=== PATIENT | female | born 1975 | race Caucasian/White ===

== ENCOUNTER 2021-04-25 22:04 | Inpatient (IN) ==
[2021-04-26 00:05] LABS: Basophils % 0.1 %; Eosinophils # 0.3 K/mcL (0.0-0.6); Eosinophils % 2.1 %; Hematocrit 34.4 % (35.3-44.9); Hemoglobin 10.6 g/dL (11.5-15.4); Immature Granulocytes % 0.4 % (0-4); Lymphocytes # 1.1 K/mcL (0.6-4.6); Lymphocytes % 7.7 %; Mean Corpuscular HGB Conc 30.8 g/dL (31.6-35.5); Mean Corpuscular Hemoglobin 30.8 pg (28.0-33.3); Mean Platelet Volume 10.1 fL (9.4-12.4); Monocytes # 0.8 K/mcL (0.0-1.3); Monocytes % 5.7 %; Neutrophils # 11.5 K/mcL (1.6-8.9); Platelet Count 258 K/mcL (140-400); Red Blood Count 3.44 M/mcL (3.82-4.97); Red Cell Distribution Width 14.6 % (11.5-14.5); White Blood Count 13.6 K/mcL (4.3-11.1)
[2021-04-26 00:08] LABS: Prothrombin Time 11.2 Seconds (9.4-12.1)
[2021-04-26 00:11] LABS: Activated Partial Thrombo Time 29.8 Seconds (26.0-36.0)
[2021-04-26 00:18] LABS: Alanine Aminotransferase 37 Units/L (7-52); Albumin 3.5 g/dL (3.5-5.7); Alkaline Phosphatase 80 Units/L (34-104); Aspartate Amino Transferase 34 Units/L (13-39); BUN/Creatinine Ratio 12 (6-26); Bilirubin,Total 0.4 mg/dL (0.3-1.0); Blood Urea Nitrogen 6 mg/dL (6-20); Calcium 8.7 mg/dL (8.6-10.3); Carbon Dioxide 32 mEq/L (23-29); Chloride 98 mEq/L (98-107); Globulin 3.6 g/dL (2.4-3.5); Glucose 69 mg/dL (70-105); Osmolality,Calculated 276 (280-300); Potassium 3.7 mEq/L (3.5-5.1); Sodium 135 mEq/L (136-145); Total Protein 7.1 g/dL (6.4-8.9); eGFR For African Americans > 60 (> 60); eGFR For Non-African Americans > 60 (> 60)
[2021-04-26] MEDS ORDERED: Bupivacaine-MPF 0.25% 10 ML VIAL INFILT ONE (00:30)
[2021-04-26] MEDS ORDERED: Ketorolac 30 MG/ML VIAL IVP ONE (01:09)
[2021-04-26] MEDS ORDERED: Naloxone 0.4 MG/ML INJ IVP PRN (03:39)
[2021-04-26] MEDS ORDERED: Melatonin 3 MG TABLET PO PRN (03:39)
[2021-04-26] MEDS ORDERED: Ondansetron 4 MG/2 ML VIAL IVP PRN (03:39)
[2021-04-26] MEDS ORDERED: Dextrose 4 GM Chewable Tablets PO PRN ×2 (06:07)
[2021-04-26] MEDS ORDERED: D5% in Water 1,000 ML IVC PRN (06:07)
[2021-04-26] MEDS ORDERED: Nicotine 21 MG PATCH.TD24 TD SCH (06:07)
[2021-04-26] MEDS ORDERED: *HR* Dextrose 50 % in Water (Syg) 50 ML SYRINGE IVP PRN (06:07)
[2021-04-26 07:12] LABS: BUN/Creatinine Ratio 13 (6-26); Blood Urea Nitrogen 7 mg/dL (6-20); Calcium 8.4 mg/dL (8.6-10.3); Carbon Dioxide 29 mEq/L (23-29); Chloride 101 mEq/L (98-107); Glucose 93 mg/dL (70-105); Magnesium 1.9 mg/dL (1.6-2.6); Osmolality,Calculated 278 (280-300); Phosphorous 2.5 mg/dL (2.7-4.5); Potassium 3.8 mEq/L (3.5-5.1); Sodium 135 mEq/L (136-145); eGFR For African Americans > 60 (> 60); eGFR For Non-African Americans > 60 (> 60)
[2021-04-26] MEDS ORDERED: Piperacillin/Tazobactam 3.375 GM in 0.9 % Sodium Chloride Mini Bag 100 ML IVPB SCH (08:00)
[2021-04-26] MEDS ORDERED: Isovue-370 500 ML BOTTLE IVP ONE ×2 (08:24→08:25)
[2021-04-26] MEDS ORDERED: 0.9 % Sodium Chloride 1,000 ML IVC SCH (08:30)
[2021-04-26 12:12] LABS: Prothrombin Time 11.3 Seconds (9.4-12.1)
[2021-04-26 12:15] LABS: Activated Partial Thrombo Time 28.6 Seconds (26.0-36.0)
[2021-04-26 12:18] LABS: Basophils % 0.1 %; Eosinophils # 0.3 K/mcL (0.0-0.6); Eosinophils % 2.3 %; Hematocrit 33.4 % (35.3-44.9); Hemoglobin 10.4 g/dL (11.5-15.4); Immature Granulocytes % 0.3 % (0-4); Lymphocytes # 0.8 K/mcL (0.6-4.6); Lymphocytes % 6.7 %; Mean Corpuscular HGB Conc 31.1 g/dL (31.6-35.5); Mean Corpuscular Hemoglobin 31.1 pg (28.0-33.3); Mean Platelet Volume 10.4 fL (9.4-12.4); Monocytes # 0.3 K/mcL (0.0-1.3); Monocytes % 2.9 %; Neutrophils # 10.1 K/mcL (1.6-8.9); Platelet Count 245 K/mcL (140-400); Red Blood Count 3.34 M/mcL (3.82-4.97); Red Cell Distribution Width 14.9 % (11.5-14.5); Segmented Neutrophils % 87.7 %; White Blood Count 11.5 K/mcL (4.3-11.1)
[2021-04-26] MEDS: Vancomycin 1,250 MG/262.5 ML IV.SOLN IVPB SCH (13:37)
[2021-04-26] MEDS: Ketorolac 30 MG/ML VIAL IVP PRN (13:38)
[2021-04-26] MEDS: Piperacillin/Tazobactam 3.375 GM in 0.9 % Sodium Chloride Mini Bag 100 ML IVPB SCH (18:21)
[2021-04-26] MEDS: *HR* OxyCODONE Immed Rel 5 MG TABLET PO PRN (19:05)
[2021-04-26] MEDS ORDERED: Melatonin 3 MG TABLET PO SCH (21:00)
[2021-04-26] MEDS ORDERED: Gabapentin 300 MG CAPSULE PO SCH (21:00)
[2021-04-26] MEDS ORDERED: FLUoxetine 20 MG CAPSULE PO SCH (22:00)
[2021-04-27] MEDS: Vancomycin 1,250 MG/262.5 ML IV.SOLN IVPB SCH ×2 (00:24→20:31)
[2021-04-27] MEDS: *HR* OxyCODONE Immed Rel 5 MG TABLET PO PRN ×3 (01:34→22:44)
[2021-04-27] MEDS: Piperacillin/Tazobactam 3.375 GM in 0.9 % Sodium Chloride Mini Bag 100 ML IVPB SCH ×3 (01:34→16:47)
[2021-04-27] MEDS ORDERED: Morphine Sulfate 2 MG/ML SYRINGE IVP ONE (05:24)
[2021-04-27] MEDS ORDERED: Ringers Solution, Lactated 1,000 ML IVC ONE (05:54)
[2021-04-27] MEDS ORDERED: *HR* Enoxaparin 40 MG/0.4 ML SYRINGE SQ SCH (06:00)
[2021-04-27] MEDS: Ketorolac 30 MG/ML VIAL IVP PRN ×3 (06:11→20:30)
[2021-04-27 07:00] LABS: Basophils % 0.2 %; Eosinophils # 0.4 K/mcL (0.0-0.6); Eosinophils % 3.3 %; Hemoglobin 9.3 g/dL (11.5-15.4); Immature Granulocytes % 0.3 % (0-4); Mean Corpuscular Hemoglobin 30.7 pg (28.0-33.3); Mean Platelet Volume 10.3 fL (9.4-12.4); Monocytes # 0.7 K/mcL (0.0-1.3); Monocytes % 5.8 %; Neutrophils # 9.4 K/mcL (1.6-8.9); Platelet Count 220 K/mcL (140-400); Red Blood Count 3.03 M/mcL (3.82-4.97); Segmented Neutrophils % 81.4 %; White Blood Count 11.6 K/mcL (4.3-11.1)
[2021-04-27 07:16] LABS: BUN/Creatinine Ratio 20 (6-26); Blood Urea Nitrogen 14 mg/dL (6-20); Calcium 7.9 mg/dL (8.6-10.3); Carbon Dioxide 26 mEq/L (23-29); Chloride 104 mEq/L (98-107); Glucose 97 mg/dL (70-105); Magnesium 1.7 mg/dL (1.6-2.6); Osmolality,Calculated 280 (280-300); Phosphorous 3.2 mg/dL (2.7-4.5); Potassium 4.4 mEq/L (3.5-5.1); Sodium 135 mEq/L (136-145); eGFR For African Americans > 60 (> 60); eGFR For Non-African Americans > 60 (> 60)
[2021-04-27] MEDS ORDERED: *HR* Propofol 200 MG/20 ML VIAL IVP ONE ×2 (08:45→12:19)
[2021-04-27] MEDS ORDERED: *HR* FentaNYL (PF) 100 MCG/2 ML VIAL ONE ×2 (08:45→12:19)
[2021-04-27] MEDS ORDERED: Ondansetron 4 MG/2 ML VIAL ONE ×2 (08:45→12:19)
[2021-04-27] MEDS ORDERED: Lidocaine -MPF 2% 5 ML VIAL ONE ×2 (08:45→12:19)
[2021-04-27] MEDS ORDERED: Carbidopa/Levodopa 25/100 TABLET PO SCH (09:00)
[2021-04-27] MEDS ORDERED: Lidocaine/EPI 1:100k 1% 30 ML VIAL ONE (12:18)
[2021-04-27] MEDS ORDERED: *HR* Midazolam HCl 2 MG/2 ML VIAL ONE (12:19)
[2021-04-27] MEDS ORDERED: *HR* Succinylcholine 200 MG/10 ML VIAL IVP ONE (12:19)
[2021-04-27] MEDS ORDERED: *HR* Rocuronium Bromide 50 MG/5 ML VIAL ONE (12:19)
[2021-04-27] MEDS ORDERED: Lidocaine -MPF 4% 5 ML AMPUL ONE (12:19)
[2021-04-27] MEDS ORDERED: Ketamine HCL *QUVA* 50mg (1mL) SYRINGE ONE (12:43)
[2021-04-27] MEDS ORDERED: Acetaminophen IV 1,000 MG/100 ML BAG IVPB ONE (14:15)
[2021-04-27] MEDS ORDERED: Naloxone 0.4 MG/ML INJ IVP PRN (14:38)
[2021-04-27] MEDS ORDERED: Dextrose 4 GM Chewable Tablets PO PRN ×2 (14:38)
[2021-04-27] MEDS ORDERED: Ondansetron 4 MG/2 ML VIAL IVP PRN (14:38)
[2021-04-27] MEDS ORDERED: D5% in Water 1,000 ML IVC PRN (14:38)
[2021-04-27] MEDS ORDERED: Melatonin 3 MG TABLET PO PRN (14:38)
[2021-04-27] MEDS ORDERED: *HR* Dextrose 50 % in Water (Syg) 50 ML SYRINGE IVP PRN (14:38)
[2021-04-27] MEDS: Melatonin 3 MG TABLET PO SCH (20:31)
[2021-04-27] MEDS: FLUoxetine 20 MG CAPSULE PO SCH (20:32)
[2021-04-27] MEDS: Gabapentin 300 MG CAPSULE PO SCH (20:32)
[2021-04-27] MEDS: Furosemide 20 MG TABLET PO SCH (22:44)
[2021-04-28] MEDS ORDERED: Vancomycin 1,250 MG/262.5 ML IV.SOLN IVPB SCH (01:00)
[2021-04-28] MEDS: Piperacillin/Tazobactam 3.375 GM in 0.9 % Sodium Chloride Mini Bag 100 ML IVPB SCH ×3 (04:08→17:41)
[2021-04-28] MEDS: Vancomycin 1,250 MG/262.5 ML IV.SOLN IVPB SCH ×2 (04:19→17:40)
[2021-04-28] MEDS: Ketorolac 30 MG/ML VIAL IVP PRN (04:20)
[2021-04-28 04:50] LABS: Basophils % 0.1 %; Eosinophils # 0.1 K/mcL (0.0-0.6); Eosinophils % 0.5 %; Hemoglobin 9.4 g/dL (11.5-15.4); Immature Granulocytes % 0.3 % (0-4); Lymphocytes # 0.9 K/mcL (0.6-4.6); Lymphocytes % 7.7 %; Mean Corpuscular HGB Conc 31.3 g/dL (31.6-35.5); Mean Corpuscular Hemoglobin 31.2 pg (28.0-33.3); Mean Corpuscular Volume 99.7 fL (83.0-100.0); Mean Platelet Volume 10.3 fL (9.4-12.4); Monocytes # 0.3 K/mcL (0.0-1.3); Monocytes % 2.6 %; Neutrophils # 10.9 K/mcL (1.6-8.9); Platelet Count 274 K/mcL (140-400); Red Blood Count 3.01 M/mcL (3.82-4.97); Red Cell Distribution Width 14.6 % (11.5-14.5); Segmented Neutrophils % 88.8 %; White Blood Count 12.3 K/mcL (4.3-11.1)
[2021-04-28 05:06] LABS: BUN/Creatinine Ratio 19 (6-26); Blood Urea Nitrogen 16 mg/dL (6-20); Calcium 8.4 mg/dL (8.6-10.3); Carbon Dioxide 29 mEq/L (23-29); Chloride 100 mEq/L (98-107); Glucose 169 mg/dL (70-105); Magnesium 1.6 mg/dL (1.6-2.6); Osmolality,Calculated 287 (280-300); Phosphorous 2.9 mg/dL (2.7-4.5); Potassium 3.8 mEq/L (3.5-5.1); Sodium 136 mEq/L (136-145); eGFR For African Americans > 60 (> 60); eGFR For Non-African Americans > 60 (> 60)
[2021-04-28] MEDS: *HR* OxyCODONE Immed Rel 5 MG TABLET PO PRN ×2 (06:17→14:36)
[2021-04-28] MEDS: *HR* Enoxaparin 40 MG/0.4 ML SYRINGE SQ SCH (06:18)
[2021-04-28] MEDS: Furosemide 20 MG TABLET PO SCH ×2 (08:29→17:42)
[2021-04-28] MEDS: Gabapentin 300 MG CAPSULE PO SCH ×2 (08:30→20:37)
[2021-04-28] MEDS: Carbidopa/Levodopa 25/100 TABLET PO SCH (08:30)
[2021-04-28] MEDS ORDERED: Nicotine 21 MG PATCH.TD24 TD SCH (09:00)
[2021-04-28] MEDS ORDERED: FLUoxetine 20 MG CAPSULE PO SCH ×2 (09:00)
[2021-04-28] MEDS: Nicotine 21 MG PATCH.TD24 TD SCH (18:06)
[2021-04-28] MEDS: Melatonin 3 MG TABLET PO SCH (20:37)
[2021-04-28] MEDS: FLUoxetine 20 MG CAPSULE PO SCH (20:38)
[2021-04-29] MEDS: Piperacillin/Tazobactam 3.375 GM in 0.9 % Sodium Chloride Mini Bag 100 ML IVPB SCH ×2 (02:20→08:36)
[2021-04-29] MEDS: Vancomycin 1,250 MG/262.5 ML IV.SOLN IVPB SCH ×2 (05:57→18:44)
[2021-04-29] MEDS: *HR* Enoxaparin 40 MG/0.4 ML SYRINGE SQ SCH (05:57)
[2021-04-29] MEDS: *HR* OxyCODONE/APAP 10/325 TABLET PO PRN ×2 (05:58→19:00)
[2021-04-29 05:59] LABS: Basophils % 0.4 %; Eosinophils # 0.4 K/mcL (0.0-0.6); Eosinophils % 5.3 %; Hematocrit 28.1 % (35.3-44.9); Hemoglobin 8.9 g/dL (11.5-15.4); Immature Granulocytes % 0.3 % (0-4); Lymphocytes # 1.6 K/mcL (0.6-4.6); Lymphocytes % 23.2 %; Mean Corpuscular HGB Conc 31.7 g/dL (31.6-35.5); Mean Corpuscular Hemoglobin 31.7 pg (28.0-33.3); Mean Platelet Volume 10.2 fL (9.4-12.4); Monocytes # 0.4 K/mcL (0.0-1.3); Monocytes % 5.8 %; Neutrophils # 4.6 K/mcL (1.6-8.9); Platelet Count 248 K/mcL (140-400); Red Blood Count 2.81 M/mcL (3.82-4.97); Red Cell Distribution Width 14.6 % (11.5-14.5)
[2021-04-29 06:35] LABS: Folate 12.8 ng/mL (3.0-16.0)
[2021-04-29 06:39] LABS: % Iron Saturation 6 % (15-50); BUN/Creatinine Ratio 22 (6-26); Blood Urea Nitrogen 17 mg/dL (6-20); Calcium 7.9 mg/dL (8.6-10.3); Carbon Dioxide 30 mEq/L (23-29); Chloride 103 mEq/L (98-107); Glucose 82 mg/dL (70-105); Iron 19 mcg/dL (50-170); Magnesium 1.6 mg/dL (1.6-2.6); Osmolality,Calculated 287 (280-300); Sodium 138 mEq/L (136-145); Transferrin 217 mg/dL (203-362); eGFR For African Americans > 60 (> 60); eGFR For Non-African Americans > 60 (> 60)
[2021-04-29] MEDS ORDERED: Iron Sucrose Complex 200 MG in 0.9 % Sodium Chloride 100 ML IVPB ONE (07:34)
[2021-04-29] MEDS ORDERED: Cyanocobalamin (B-12) 1,000 MCG/ML VIAL SQ ONE (07:34)
[2021-04-29 07:37] LABS: Ferritin 36 ng/mL (10-120)
[2021-04-29] MEDS: Gabapentin 300 MG CAPSULE PO SCH ×2 (08:35→21:54)
[2021-04-29] MEDS: Carbidopa/Levodopa 25/100 TABLET PO SCH (08:35)
[2021-04-29] MEDS: Nicotine 21 MG PATCH.TD24 TD SCH (18:48)
[2021-04-29] MEDS: Melatonin 3 MG TABLET PO SCH (21:53)
[2021-04-29] MEDS: FLUoxetine 20 MG CAPSULE PO SCH (21:54)
[2021-04-30] MEDS: Vancomycin 1,250 MG/262.5 ML IV.SOLN IVPB SCH ×2 (05:57→20:23)
[2021-04-30] MEDS: *HR* Enoxaparin 40 MG/0.4 ML SYRINGE SQ SCH (05:57)
[2021-04-30] MEDS: *HR* OxyCODONE/APAP 10/325 TABLET PO PRN ×3 (06:04→20:22)
[2021-04-30 07:51] LABS: BUN/Creatinine Ratio 16 (6-26); Blood Urea Nitrogen 12 mg/dL (6-20); Calcium 8.8 mg/dL (8.6-10.3); Carbon Dioxide 36 mEq/L (23-29); Chloride 102 mEq/L (98-107); Glucose 94 mg/dL (70-105); Osmolality,Calculated 294 (280-300); Potassium 4.1 mEq/L (3.5-5.1); Sodium 142 mEq/L (136-145); eGFR For African Americans > 60 (> 60); eGFR For Non-African Americans > 60 (> 60)
[2021-04-30 09:07] LABS: Basophils % 0.5 %; Eosinophils # 0.3 K/mcL (0.0-0.6); Eosinophils % 5.3 %; Hematocrit 33.3 % (35.3-44.9); Hemoglobin 9.9 g/dL (11.5-15.4); Immature Granulocytes % 0.5 % (0-4); Lymphocytes # 1.5 K/mcL (0.6-4.6); Lymphocytes % 23.7 %; Mean Corpuscular HGB Conc 29.7 g/dL (31.6-35.5); Mean Corpuscular Hemoglobin 30.4 pg (28.0-33.3); Mean Corpuscular Volume 102.1 fL (83.0-100.0); Mean Platelet Volume 10.1 fL (9.4-12.4); Monocytes # 0.4 K/mcL (0.0-1.3); Monocytes % 6.3 %; Neutrophils # 4.1 K/mcL (1.6-8.9); Platelet Count 330 K/mcL (140-400); Red Blood Count 3.26 M/mcL (3.82-4.97); Red Cell Distribution Width 14.6 % (11.5-14.5); Segmented Neutrophils % 63.7 %; White Blood Count 6.4 K/mcL (4.3-11.1)
[2021-04-30 09:21] LABS: Thyroid Stimulating Hormone 100.105 mcIU/mL (0.340-5.600)
[2021-04-30] MEDS: Carbidopa/Levodopa 25/100 TABLET PO SCH (10:35)
[2021-04-30] MEDS: Gabapentin 300 MG CAPSULE PO SCH ×2 (10:36→20:22)
[2021-04-30] MEDS: Nicotine 21 MG PATCH.TD24 TD SCH (18:38)
[2021-04-30] MEDS: FLUoxetine 20 MG CAPSULE PO SCH (20:22)
[2021-04-30] MEDS: Melatonin 3 MG TABLET PO SCH (20:22)
[2021-05-01] MEDS: *HR* OxyCODONE/APAP 10/325 TABLET PO PRN ×5 (03:04→22:43)
[2021-05-01 03:34] LABS: Basophils % 0.6 %; Eosinophils # 0.4 K/mcL (0.0-0.6); Eosinophils % 5.8 %; Hematocrit 32.5 % (35.3-44.9); Hemoglobin 10.1 g/dL (11.5-15.4); Immature Granulocytes % 0.8 % (0-4); Lymphocytes # 1.6 K/mcL (0.6-4.6); Lymphocytes % 24.8 %; Mean Corpuscular HGB Conc 31.1 g/dL (31.6-35.5); Mean Corpuscular Hemoglobin 30.8 pg (28.0-33.3); Mean Corpuscular Volume 99.1 fL (83.0-100.0); Mean Platelet Volume 9.5 fL (9.4-12.4); Monocytes # 0.4 K/mcL (0.0-1.3); Monocytes % 5.5 %; Neutrophils # 4.1 K/mcL (1.6-8.9); Platelet Count 312 K/mcL (140-400); Red Blood Count 3.28 M/mcL (3.82-4.97); Red Cell Distribution Width 14.4 % (11.5-14.5); Segmented Neutrophils % 62.5 %; White Blood Count 6.5 K/mcL (4.3-11.1)
[2021-05-01 03:46] LABS: BUN/Creatinine Ratio 16 (6-26); Blood Urea Nitrogen 12 mg/dL (6-20); Calcium 8.8 mg/dL (8.6-10.3); Carbon Dioxide 33 mEq/L (23-29); Chloride 101 mEq/L (98-107); Glucose 95 mg/dL (70-105); Magnesium 1.8 mg/dL (1.6-2.6); Osmolality,Calculated 286 (280-300); Potassium 4.2 mEq/L (3.5-5.1); Sodium 138 mEq/L (136-145); eGFR For African Americans > 60 (> 60); eGFR For Non-African Americans > 60 (> 60)
[2021-05-01] MEDS: *HR* Enoxaparin 40 MG/0.4 ML SYRINGE SQ SCH (06:13)
[2021-05-01] MEDS: Vancomycin 1,250 MG/262.5 ML IV.SOLN IVPB SCH ×2 (06:14→17:12)
[2021-05-01 07:10] LABS: Triiodothyronine (T3) Free 1.82 pg/mL (2.50-3.90)
[2021-05-01 07:36] LABS: Thyroid Stimulating Hormone 68.885 mcIU/mL (0.340-5.600)
[2021-05-01] MEDS: Gabapentin 300 MG CAPSULE PO SCH ×2 (08:22→21:19)
[2021-05-01] MEDS: Furosemide 40 MG/4 ML VIAL IVP SCH (08:22)
[2021-05-01] MEDS: Carbidopa/Levodopa 25/100 TABLET PO SCH (08:22)
[2021-05-01] MEDS: Nicotine 21 MG PATCH.TD24 TD SCH (17:12)
[2021-05-01] MEDS: FLUoxetine 20 MG CAPSULE PO SCH (21:19)
[2021-05-01] MEDS: Melatonin 3 MG TABLET PO SCH (21:19)
[2021-05-02 04:28] LABS: Basophils % 0.4 %; Eosinophils # 0.4 K/mcL (0.0-0.6); Eosinophils % 5.9 %; Hematocrit 31.4 % (35.3-44.9); Lymphocytes # 1.5 K/mcL (0.6-4.6); Lymphocytes % 22.6 %; Mean Corpuscular HGB Conc 31.8 g/dL (31.6-35.5); Mean Corpuscular Hemoglobin 31.3 pg (28.0-33.3); Mean Corpuscular Volume 98.1 fL (83.0-100.0); Mean Platelet Volume 9.6 fL (9.4-12.4); Monocytes # 0.4 K/mcL (0.0-1.3); Monocytes % 5.3 %; Neutrophils # 4.4 K/mcL (1.6-8.9); Platelet Count 327 K/mcL (140-400); Red Cell Distribution Width 14.1 % (11.5-14.5); Segmented Neutrophils % 64.8 %; White Blood Count 6.8 K/mcL (4.3-11.1)
[2021-05-02 05:18] LABS: BUN/Creatinine Ratio 17 (6-26); Blood Urea Nitrogen 13 mg/dL (6-20); Calcium 8.9 mg/dL (8.6-10.3); Carbon Dioxide 32 mEq/L (23-29); Chloride 100 mEq/L (98-107); Glucose 85 mg/dL (70-105); Magnesium 1.9 mg/dL (1.6-2.6); Osmolality,Calculated 281 (280-300); Potassium 4.2 mEq/L (3.5-5.1); Sodium 136 mEq/L (136-145); eGFR For African Americans > 60 (> 60); eGFR For Non-African Americans > 60 (> 60)
[2021-05-02] MEDS: *HR* OxyCODONE/APAP 10/325 TABLET PO PRN ×4 (05:22→20:40)
[2021-05-02] MEDS: Vancomycin 1,250 MG/262.5 ML IV.SOLN IVPB SCH ×2 (05:22→18:20)
[2021-05-02] MEDS: *HR* Enoxaparin 40 MG/0.4 ML SYRINGE SQ SCH (05:23)
[2021-05-02] MEDS: Carbidopa/Levodopa 25/100 TABLET PO SCH (08:53)
[2021-05-02] MEDS: Gabapentin 300 MG CAPSULE PO SCH ×2 (08:53→20:41)
[2021-05-02] MEDS: Furosemide 40 MG/4 ML VIAL IVP SCH (08:53)
[2021-05-02] MEDS ORDERED: Isovue-370 500 ML BOTTLE IVP ONE (13:24)
[2021-05-02] MEDS: Nicotine 21 MG PATCH.TD24 TD SCH (18:20)
[2021-05-02] MEDS: Melatonin 3 MG TABLET PO SCH (20:40)
[2021-05-02] MEDS: FLUoxetine 20 MG CAPSULE PO SCH (20:41)
[2021-05-03] MEDS: *HR* OxyCODONE/APAP 10/325 TABLET PO PRN ×5 (02:21→23:27)
[2021-05-03 04:16] LABS: Basophils % 0.6 %; Eosinophils # 0.4 K/mcL (0.0-0.6); Eosinophils % 5.6 %; Hematocrit 33.6 % (35.3-44.9); Hemoglobin 10.7 g/dL (11.5-15.4); Immature Granulocytes % 1.3 % (0-4); Lymphocytes # 1.6 K/mcL (0.6-4.6); Lymphocytes % 22.9 %; Mean Corpuscular HGB Conc 31.8 g/dL (31.6-35.5); Mean Corpuscular Volume 97.4 fL (83.0-100.0); Mean Platelet Volume 9.5 fL (9.4-12.4); Monocytes # 0.5 K/mcL (0.0-1.3); Monocytes % 6.9 %; Neutrophils # 4.3 K/mcL (1.6-8.9); Platelet Count 366 K/mcL (140-400); Red Blood Count 3.45 M/mcL (3.82-4.97); Red Cell Distribution Width 14.2 % (11.5-14.5); Segmented Neutrophils % 62.7 %; White Blood Count 6.8 K/mcL (4.3-11.1)
[2021-05-03 04:45] LABS: BUN/Creatinine Ratio 16 (6-26); Blood Urea Nitrogen 14 mg/dL (6-20); Calcium 8.8 mg/dL (8.6-10.3); Carbon Dioxide 32 mEq/L (23-29); Chloride 99 mEq/L (98-107); Glucose 95 mg/dL (70-105); Osmolality,Calculated 282 (280-300); Potassium 3.9 mEq/L (3.5-5.1); Sodium 136 mEq/L (136-145); eGFR For African Americans > 60 (> 60); eGFR For Non-African Americans > 60 (> 60)
[2021-05-03] MEDS: Vancomycin 1,250 MG/262.5 ML IV.SOLN IVPB SCH ×2 (05:21→16:47)
[2021-05-03] MEDS: *HR* Enoxaparin 40 MG/0.4 ML SYRINGE SQ SCH (05:22)
[2021-05-03] MEDS: Carbidopa/Levodopa 25/100 TABLET PO SCH (08:41)
[2021-05-03] MEDS: Gabapentin 300 MG CAPSULE PO SCH ×2 (08:41→20:48)
[2021-05-03] MEDS: polyethylene glycoL 3350 17 GM POWD.PACK PO SCH (09:42)
[2021-05-03] MEDS: Ringers Solution, Lactated 1,000 ML IVC SCH (16:47)
[2021-05-03] MEDS ORDERED: Lidocaine -MPF 2% 5 ML VIAL ONE (17:00)
[2021-05-03] MEDS ORDERED: *HR* FentaNYL (PF) 100 MCG/2 ML VIAL ONE (17:00)
[2021-05-03] MEDS ORDERED: *HR* Midazolam HCl 2 MG/2 ML VIAL ONE (17:00)
[2021-05-03] MEDS ORDERED: Lidocaine/EPI 1:100k 1% 30 ML VIAL ONE (17:01)
[2021-05-03] MEDS ORDERED: *HR* Propofol 200 MG/20 ML VIAL IVP ONE ×3 (17:01→17:39)
[2021-05-03] MEDS ORDERED: Bupivacaine/EPI 1:200k 0.25% 50 ML VIAL ONE (17:18)
[2021-05-03] MEDS: Nicotine 21 MG PATCH.TD24 TD SCH (17:26)
[2021-05-03] MEDS: Melatonin 3 MG TABLET PO SCH (20:48)
[2021-05-03] MEDS: FLUoxetine 20 MG CAPSULE PO SCH (20:48)
[2021-05-04] MEDS: Vancomycin 1,250 MG/262.5 ML IV.SOLN IVPB SCH (05:12)
[2021-05-04] MEDS: *HR* OxyCODONE/APAP 10/325 TABLET PO PRN ×4 (05:19→20:21)
[2021-05-04] MEDS: *HR* Enoxaparin 40 MG/0.4 ML SYRINGE SQ SCH (05:19)
[2021-05-04 06:03] LABS: Basophils % 0.5 %; Eosinophils # 0.4 K/mcL (0.0-0.6); Eosinophils % 4.7 %; Hematocrit 32.3 % (35.3-44.9); Hemoglobin 10.2 g/dL (11.5-15.4); Immature Granulocytes % 1.1 % (0-4); Lymphocytes # 1.4 K/mcL (0.6-4.6); Lymphocytes % 17.3 %; Mean Corpuscular HGB Conc 31.6 g/dL (31.6-35.5); Mean Corpuscular Hemoglobin 30.9 pg (28.0-33.3); Mean Corpuscular Volume 97.9 fL (83.0-100.0); Mean Platelet Volume 9.6 fL (9.4-12.4); Monocytes # 0.5 K/mcL (0.0-1.3); Monocytes % 5.9 %; Neutrophils # 5.8 K/mcL (1.6-8.9); Platelet Count 374 K/mcL (140-400); Red Cell Distribution Width 14.3 % (11.5-14.5); Segmented Neutrophils % 70.5 %; White Blood Count 8.3 K/mcL (4.3-11.1)
[2021-05-04 06:17] LABS: BUN/Creatinine Ratio 17 (6-26); Blood Urea Nitrogen 16 mg/dL (6-20); Calcium 8.8 mg/dL (8.6-10.3); Carbon Dioxide 31 mEq/L (23-29); Chloride 101 mEq/L (98-107); Glucose 82 mg/dL (70-105); Magnesium 1.9 mg/dL (1.6-2.6); Osmolality,Calculated 282 (280-300); Potassium 4.2 mEq/L (3.5-5.1); Sodium 136 mEq/L (136-145); eGFR For African Americans > 60 (> 60); eGFR For Non-African Americans > 60 (> 60)
[2021-05-04] MEDS: polyethylene glycoL 3350 17 GM POWD.PACK PO SCH (07:51)
[2021-05-04] MEDS: Carbidopa/Levodopa 25/100 TABLET PO SCH (07:51)
[2021-05-04] MEDS: Gabapentin 300 MG CAPSULE PO SCH ×2 (07:51→20:21)
[2021-05-04] MEDS ORDERED: polyethylene glycoL 3350 17 GM POWD.PACK PO SCH (09:28)
[2021-05-04] MEDS: Nicotine 21 MG PATCH.TD24 TD SCH (17:52)
[2021-05-04] MEDS: Melatonin 3 MG TABLET PO SCH (20:21)
[2021-05-04] MEDS: FLUoxetine 20 MG CAPSULE PO SCH (20:21)
[2021-05-05] MEDS: *HR* OxyCODONE/APAP 10/325 TABLET PO PRN ×5 (00:34→20:48)
[2021-05-05] MEDS: *HR* Enoxaparin 40 MG/0.4 ML SYRINGE SQ SCH (05:23)
[2021-05-05 05:53] LABS: Basophils % 0.7 %; Eosinophils # 0.4 K/mcL (0.0-0.6); Eosinophils % 6.6 %; Hematocrit 35.2 % (35.3-44.9); Hemoglobin 11.1 g/dL (11.5-15.4); Lymphocytes # 1.5 K/mcL (0.6-4.6); Lymphocytes % 25.8 %; Mean Corpuscular HGB Conc 31.5 g/dL (31.6-35.5); Mean Corpuscular Hemoglobin 30.2 pg (28.0-33.3); Mean Corpuscular Volume 95.7 fL (83.0-100.0); Mean Platelet Volume 9.5 fL (9.4-12.4); Monocytes # 0.4 K/mcL (0.0-1.3); Monocytes % 7.2 %; Neutrophils # 3.4 K/mcL (1.6-8.9); Platelet Count 362 K/mcL (140-400); Red Blood Count 3.68 M/mcL (3.82-4.97); Red Cell Distribution Width 14.1 % (11.5-14.5); Segmented Neutrophils % 58.7 %; White Blood Count 5.7 K/mcL (4.3-11.1)
[2021-05-05] MEDS: Ringers Solution, Lactated 1,000 ML IVC SCH ×2 (08:07→10:34)
[2021-05-05] MEDS: Gabapentin 300 MG CAPSULE PO SCH ×3 (10:25→20:48)
[2021-05-05] MEDS: Carbidopa/Levodopa 25/100 TABLET PO SCH (10:25)
[2021-05-05] MEDS: polyethylene glycoL 3350 17 GM POWD.PACK PO SCH (10:26)
[2021-05-05] MEDS: Nicotine 21 MG PATCH.TD24 TD SCH (17:49)
[2021-05-05 20:24] LABS: BUN/Creatinine Ratio 17 (6-26); Blood Urea Nitrogen 14 mg/dL (6-20); Carbon Dioxide 30 mEq/L (23-29); Chloride 100 mEq/L (98-107); Glucose 77 mg/dL (70-105); Osmolality,Calculated 283 (280-300); Potassium 4.2 mEq/L (3.5-5.1); Sodium 137 mEq/L (136-145); eGFR For African Americans > 60 (> 60); eGFR For Non-African Americans > 60 (> 60)
[2021-05-05] MEDS: Melatonin 3 MG TABLET PO SCH (20:48)
[2021-05-05] MEDS: FLUoxetine 20 MG CAPSULE PO SCH (20:48)
[2021-05-06] MEDS: *HR* OxyCODONE/APAP 10/325 TABLET PO PRN ×5 (01:26→23:31)
[2021-05-06 05:06] LABS: Basophils % 0.6 %; Eosinophils # 0.4 K/mcL (0.0-0.6); Hemoglobin 10.5 g/dL (11.5-15.4); Immature Granulocytes % 0.9 % (0-4); Lymphocytes # 1.4 K/mcL (0.6-4.6); Lymphocytes % 20.9 %; Mean Corpuscular HGB Conc 30.9 g/dL (31.6-35.5); Mean Corpuscular Hemoglobin 30.1 pg (28.0-33.3); Mean Corpuscular Volume 97.4 fL (83.0-100.0); Mean Platelet Volume 9.6 fL (9.4-12.4); Monocytes # 0.5 K/mcL (0.0-1.3); Monocytes % 7.6 %; Neutrophils # 4.4 K/mcL (1.6-8.9); Platelet Count 366 K/mcL (140-400); Red Blood Count 3.49 M/mcL (3.82-4.97); Red Cell Distribution Width 14.4 % (11.5-14.5); White Blood Count 6.8 K/mcL (4.3-11.1)
[2021-05-06 05:51] LABS: BUN/Creatinine Ratio 21 (6-26); Blood Urea Nitrogen 17 mg/dL (6-20); Calcium 8.8 mg/dL (8.6-10.3); Carbon Dioxide 28 mEq/L (23-29); Chloride 101 mEq/L (98-107); Glucose 93 mg/dL (70-105); Magnesium 1.9 mg/dL (1.6-2.6); Osmolality,Calculated 279 (280-300); Potassium 3.7 mEq/L (3.5-5.1); Sodium 134 mEq/L (136-145); Vancomycin,Trough 13 mcg/mL (5-10); eGFR For African Americans > 60 (> 60); eGFR For Non-African Americans > 60 (> 60)
[2021-05-06] MEDS: *HR* Enoxaparin 40 MG/0.4 ML SYRINGE SQ SCH (06:04)
[2021-05-06] MEDS: polyethylene glycoL 3350 17 GM POWD.PACK PO SCH (09:29)
[2021-05-06] MEDS: Gabapentin 300 MG CAPSULE PO SCH ×3 (09:29→20:00)
[2021-05-06] MEDS ORDERED: Lidocaine -MPF 1% 5 ML AMPUL INFILT ONE (13:57)
[2021-05-06] MEDS: Sennosides/Docusate Sodium TABLET PO SCH ×2 (15:07→20:00)
[2021-05-06] MEDS ORDERED: Vancomycin 1,250 MG/262.5 ML IV.SOLN IVPB SCH (17:00)
[2021-05-06] MEDS: Nicotine 21 MG PATCH.TD24 TD SCH (17:13)
[2021-05-06] MEDS: Vancomycin 1,250 MG/262.5 ML IV.SOLN IVPB SCH (17:13)
[2021-05-06] MEDS: Ringers Solution, Lactated 1,000 ML IVC SCH (19:57)
[2021-05-06] MEDS: FLUoxetine 20 MG CAPSULE PO SCH (20:00)
[2021-05-06] MEDS: Melatonin 3 MG TABLET PO SCH (20:01)
[2021-05-07] MEDS ORDERED: *HR* LORazepam 0.5 MG TABLET PO ONE (00:27)
[2021-05-07] MEDS: *HR* OxyCODONE/APAP 10/325 TABLET PO PRN ×4 (03:39→22:54)
[2021-05-07 04:01] LABS: Basophils % 0.5 %; Eosinophils # 0.4 K/mcL (0.0-0.6); Eosinophils % 6.1 %; Hematocrit 31.4 % (35.3-44.9); Hemoglobin 9.8 g/dL (11.5-15.4); Lymphocytes # 1.1 K/mcL (0.6-4.6); Lymphocytes % 17.7 %; Mean Corpuscular HGB Conc 31.2 g/dL (31.6-35.5); Mean Corpuscular Hemoglobin 30.6 pg (28.0-33.3); Mean Corpuscular Volume 98.1 fL (83.0-100.0); Mean Platelet Volume 9.7 fL (9.4-12.4); Monocytes # 0.5 K/mcL (0.0-1.3); Monocytes % 8.4 %; Neutrophils # 3.9 K/mcL (1.6-8.9); Platelet Count 337 K/mcL (140-400); Red Cell Distribution Width 14.1 % (11.5-14.5); Segmented Neutrophils % 66.3 %; White Blood Count 5.9 K/mcL (4.3-11.1)
[2021-05-07 04:14] LABS: BUN/Creatinine Ratio 19 (6-26); Blood Urea Nitrogen 15 mg/dL (6-20); Calcium 9.3 mg/dL (8.6-10.3); Carbon Dioxide 28 mEq/L (23-29); Chloride 101 mEq/L (98-107); Glucose 111 mg/dL (70-105); Magnesium 1.9 mg/dL (1.6-2.6); Osmolality,Calculated 284 (280-300); Potassium 3.7 mEq/L (3.5-5.1); Sodium 136 mEq/L (136-145); eGFR For African Americans > 60 (> 60); eGFR For Non-African Americans > 60 (> 60)
[2021-05-07] MEDS: *HR* Enoxaparin 40 MG/0.4 ML SYRINGE SQ SCH (05:40)
[2021-05-07] MEDS: Vancomycin 1,250 MG/262.5 ML IV.SOLN IVPB SCH ×2 (05:41→18:17)
[2021-05-07] MEDS: polyethylene glycoL 3350 17 GM POWD.PACK PO SCH (07:37)
[2021-05-07] MEDS: Sennosides/Docusate Sodium TABLET PO SCH ×2 (07:37→20:12)
[2021-05-07] MEDS: Gabapentin 300 MG CAPSULE PO SCH ×3 (07:37→20:13)
[2021-05-07] MEDS: Nicotine 21 MG PATCH.TD24 TD SCH (16:38)
[2021-05-07] MEDS: Melatonin 3 MG TABLET PO SCH (20:11)
[2021-05-07] MEDS: FLUoxetine 20 MG CAPSULE PO SCH (20:13)
[2021-05-07] MEDS: Ringers Solution, Lactated 1,000 ML IVC SCH (23:47)
[2021-05-08] MEDS ORDERED: *HR* LORazepam 0.5 MG TABLET PO ONE ×2 (00:14)
[2021-05-08] MEDS: *HR* OxyCODONE/APAP 10/325 TABLET PO PRN ×4 (04:21→21:51)
[2021-05-08 05:08] LABS: Basophils % 0.3 %; Eosinophils # 0.4 K/mcL (0.0-0.6); Eosinophils % 6.6 %; Hematocrit 33.6 % (35.3-44.9); Hemoglobin 10.4 g/dL (11.5-15.4); Immature Granulocytes % 0.5 % (0-4); Lymphocytes % 16.9 %; Mean Corpuscular Hemoglobin 30.2 pg (28.0-33.3); Mean Corpuscular Volume 97.7 fL (83.0-100.0); Mean Platelet Volume 10.1 fL (9.4-12.4); Monocytes # 0.5 K/mcL (0.0-1.3); Monocytes % 7.9 %; Neutrophils # 3.9 K/mcL (1.6-8.9); Platelet Count 293 K/mcL (140-400); Red Blood Count 3.44 M/mcL (3.82-4.97); Red Cell Distribution Width 14.2 % (11.5-14.5); Segmented Neutrophils % 67.8 %; White Blood Count 5.8 K/mcL (4.3-11.1)
[2021-05-08 05:26] LABS: BUN/Creatinine Ratio 14 (6-26); Blood Urea Nitrogen 11 mg/dL (6-20); Calcium 9.2 mg/dL (8.6-10.3); Carbon Dioxide 29 mEq/L (23-29); Chloride 99 mEq/L (98-107); Glucose 114 mg/dL (70-105); Magnesium 1.9 mg/dL (1.6-2.6); Osmolality,Calculated 278 (280-300); Potassium 3.6 mEq/L (3.5-5.1); Sodium 134 mEq/L (136-145); eGFR For African Americans > 60 (> 60); eGFR For Non-African Americans > 60 (> 60)
[2021-05-08] MEDS ORDERED: Vancomycin 1,250 MG/262.5 ML IV.SOLN IVPB SCH (06:00)
[2021-05-08] MEDS: *HR* Enoxaparin 40 MG/0.4 ML SYRINGE SQ SCH (06:35)
[2021-05-08] MEDS: Vancomycin 1,500 MG/265 ML IV.SOLN IVPB SCH ×2 (06:36→17:33)
[2021-05-08] MEDS: Gabapentin 300 MG CAPSULE PO SCH ×3 (10:16→20:34)
[2021-05-08] MEDS: Sennosides/Docusate Sodium TABLET PO SCH ×2 (10:17→20:38)
[2021-05-08] MEDS: polyethylene glycoL 3350 17 GM POWD.PACK PO SCH (10:18)
[2021-05-08] MEDS: Nicotine 21 MG PATCH.TD24 TD SCH (17:02)
[2021-05-08] MEDS: Acetaminophen 325 MG TABLET PO PRN (19:40)
[2021-05-08] MEDS: Ketorolac 30 MG/ML VIAL IVP PRN (19:40)
[2021-05-08] MEDS: FLUoxetine 20 MG CAPSULE PO SCH (20:34)
[2021-05-08] MEDS: Melatonin 3 MG TABLET PO SCH (20:35)
[2021-05-09] MEDS: *HR* OxyCODONE/APAP 10/325 TABLET PO PRN ×5 (04:07→23:41)
[2021-05-09] MEDS: Vancomycin 1,500 MG/265 ML IV.SOLN IVPB SCH ×2 (05:52→18:41)
[2021-05-09] MEDS: *HR* Enoxaparin 40 MG/0.4 ML SYRINGE SQ SCH (05:53)
[2021-05-09] MEDS: Gabapentin 300 MG CAPSULE PO SCH ×3 (08:56→21:01)
[2021-05-09] MEDS: polyethylene glycoL 3350 17 GM POWD.PACK PO SCH (08:57)
[2021-05-09] MEDS: Nicotine 21 MG PATCH.TD24 TD SCH (18:41)
[2021-05-09] MEDS: FLUoxetine 20 MG CAPSULE PO SCH (21:01)
[2021-05-09] MEDS: Melatonin 3 MG TABLET PO SCH (21:01)
[2021-05-09] MEDS ORDERED: *HR* LORazepam 0.5 MG TABLET PO ONE (23:48)
[2021-05-10] MEDS: Ketorolac 30 MG/ML VIAL IVP PRN ×2 (00:47→14:55)
[2021-05-10] MEDS: Acetaminophen 325 MG TABLET PO PRN (00:47)
[2021-05-10] MEDS: *HR* OxyCODONE/APAP 10/325 TABLET PO PRN ×4 (04:38→20:08)
[2021-05-10 05:00] LABS: Basophils % 0.2 %; Eosinophils # 0.4 K/mcL (0.0-0.6); Eosinophils % 9.3 %; Hematocrit 31.6 % (35.3-44.9); Hemoglobin 9.9 g/dL (11.5-15.4); Immature Granulocytes % 0.4 % (0-4); Lymphocytes # 0.8 K/mcL (0.6-4.6); Lymphocytes % 16.7 %; Mean Corpuscular HGB Conc 31.3 g/dL (31.6-35.5); Mean Corpuscular Hemoglobin 30.1 pg (28.0-33.3); Mean Platelet Volume 10.1 fL (9.4-12.4); Monocytes # 0.4 K/mcL (0.0-1.3); Monocytes % 9.6 %; Neutrophils # 2.9 K/mcL (1.6-8.9); Platelet Count 251 K/mcL (140-400); Red Blood Count 3.29 M/mcL (3.82-4.97); Red Cell Distribution Width 14.4 % (11.5-14.5); Segmented Neutrophils % 63.8 %; White Blood Count 4.5 K/mcL (4.3-11.1)
[2021-05-10 05:08] LABS: BUN/Creatinine Ratio 15 (6-26); Blood Urea Nitrogen 11 mg/dL (6-20); Calcium 8.9 mg/dL (8.6-10.3); Carbon Dioxide 29 mEq/L (23-29); Chloride 102 mEq/L (98-107); Glucose 85 mg/dL (70-105); Osmolality,Calculated 283 (280-300); Potassium 3.7 mEq/L (3.5-5.1); Sodium 137 mEq/L (136-145); Vancomycin,Trough 14 mcg/mL (5-10); eGFR For African Americans > 60 (> 60); eGFR For Non-African Americans > 60 (> 60)
[2021-05-10] MEDS: *HR* Enoxaparin 40 MG/0.4 ML SYRINGE SQ SCH (05:46)
[2021-05-10] MEDS: Vancomycin 1,500 MG/265 ML IV.SOLN IVPB SCH ×2 (05:46→18:13)
[2021-05-10] MEDS: Gabapentin 300 MG CAPSULE PO SCH ×3 (09:05→21:47)
[2021-05-10] MEDS: polyethylene glycoL 3350 17 GM POWD.PACK PO SCH (09:05)
[2021-05-10] MEDS: Nicotine 21 MG PATCH.TD24 TD SCH (18:14)
[2021-05-10] MEDS: FLUoxetine 20 MG CAPSULE PO SCH (21:47)
[2021-05-10] MEDS: Melatonin 3 MG TABLET PO SCH (21:47)
[2021-05-11] MEDS: *HR* OxyCODONE/APAP 10/325 TABLET PO PRN ×6 (00:21→22:29)
[2021-05-11] MEDS: Vancomycin 1,500 MG/265 ML IV.SOLN IVPB SCH ×2 (04:52→18:44)
[2021-05-11] MEDS: *HR* Enoxaparin 40 MG/0.4 ML SYRINGE SQ SCH (04:52)
[2021-05-11] MEDS: Gabapentin 300 MG CAPSULE PO SCH ×3 (10:07→20:26)
[2021-05-11] MEDS: polyethylene glycoL 3350 17 GM POWD.PACK PO SCH (10:07)
[2021-05-11 10:39] LABS: eGFR For African Americans > 60 (> 60); eGFR For Non-African Americans > 60 (> 60)
[2021-05-11] MEDS: Ketorolac 30 MG/ML VIAL IVP PRN ×2 (13:53→20:31)
[2021-05-11] MEDS: Nicotine 21 MG PATCH.TD24 TD SCH (17:58)
[2021-05-11] MEDS: Acetaminophen 325 MG TABLET PO PRN (17:58)
[2021-05-11] MEDS: FLUoxetine 20 MG CAPSULE PO SCH (20:26)
[2021-05-11] MEDS: Melatonin 3 MG TABLET PO SCH (20:27)
[2021-05-12] MEDS: *HR* OxyCODONE/APAP 10/325 TABLET PO PRN ×5 (02:42→20:33)
[2021-05-12] MEDS: Vancomycin 1,500 MG/265 ML IV.SOLN IVPB SCH ×2 (06:42→18:57)
[2021-05-12] MEDS: *HR* Enoxaparin 40 MG/0.4 ML SYRINGE SQ SCH (06:43)
[2021-05-12 07:10] LABS: Basophils % 0.4 %; Eosinophils # 0.3 K/mcL (0.0-0.6); Eosinophils % 9.6 %; Hematocrit 31.4 % (35.3-44.9); Hemoglobin 9.7 g/dL (11.5-15.4); Immature Granulocytes % 0.4 % (0-4); Lymphocytes # 0.6 K/mcL (0.6-4.6); Lymphocytes % 22.2 %; Mean Corpuscular HGB Conc 30.9 g/dL (31.6-35.5); Mean Corpuscular Hemoglobin 29.6 pg (28.0-33.3); Mean Corpuscular Volume 95.7 fL (83.0-100.0); Mean Platelet Volume 9.7 fL (9.4-12.4); Monocytes # 0.4 K/mcL (0.0-1.3); Monocytes % 13.4 %; Neutrophils # 1.4 K/mcL (1.6-8.9); Platelet Count 218 K/mcL (140-400); Red Blood Count 3.28 M/mcL (3.82-4.97); Red Cell Distribution Width 14.4 % (11.5-14.5); White Blood Count 2.6 K/mcL (4.3-11.1)
[2021-05-12 07:27] LABS: BUN/Creatinine Ratio 20 (6-26); Blood Urea Nitrogen 13 mg/dL (6-20); Calcium 8.8 mg/dL (8.6-10.3); Carbon Dioxide 29 mEq/L (23-29); Chloride 103 mEq/L (98-107); Glucose 86 mg/dL (70-105); Osmolality,Calculated 283 (280-300); Potassium 3.8 mEq/L (3.5-5.1); Sodium 137 mEq/L (136-145); eGFR For African Americans > 60 (> 60); eGFR For Non-African Americans > 60 (> 60)
[2021-05-12] MEDS: Ketorolac 30 MG/ML VIAL IVP PRN (09:48)
[2021-05-12] MEDS: polyethylene glycoL 3350 17 GM POWD.PACK PO SCH (09:51)
[2021-05-12] MEDS: Gabapentin 300 MG CAPSULE PO SCH ×3 (09:51→20:32)
[2021-05-12] MEDS: Acetaminophen 325 MG TABLET PO PRN ×3 (10:07→23:15)
[2021-05-12] MEDS ORDERED: Ketorolac 30 MG/ML VIAL IVP PRN (10:26)
[2021-05-12] MEDS: Nicotine 21 MG PATCH.TD24 TD SCH (18:47)
[2021-05-12] MEDS: Melatonin 3 MG TABLET PO SCH (20:32)
[2021-05-12] MEDS: FLUoxetine 20 MG CAPSULE PO SCH (20:32)
[2021-05-13] MEDS: *HR* OxyCODONE/APAP 10/325 TABLET PO PRN ×4 (03:58→19:31)
[2021-05-13 04:24] LABS: Hematocrit 28.9 % (35.3-44.9); Hemoglobin 9.2 g/dL (11.5-15.4); Mean Corpuscular HGB Conc 31.8 g/dL (31.6-35.5); Mean Corpuscular Hemoglobin 30.3 pg (28.0-33.3); Mean Corpuscular Volume 95.1 fL (83.0-100.0); Mean Platelet Volume 9.8 fL (9.4-12.4); Platelet Count 211 K/mcL (140-400); Red Blood Count 3.04 M/mcL (3.82-4.97); Red Cell Distribution Width 14.5 % (11.5-14.5); White Blood Count 2.8 K/mcL (4.3-11.1)
[2021-05-13 04:45] LABS: Eosinophils # 0.2 K/mcL (0.0-0.6); Lymphocytes # 0.8 K/mcL (0.6-4.6); Monocytes # 0.1 K/mcL (0.0-1.3); Neutrophils # 1.7 K/mcL (1.6-8.9); Platelet Estimate Normal (Normal); Reactive Lymphocytes Present (Not Present)
[2021-05-13] MEDS: Vancomycin 1,500 MG/265 ML IV.SOLN IVPB SCH ×2 (05:28→18:31)
[2021-05-13] MEDS: *HR* Enoxaparin 40 MG/0.4 ML SYRINGE SQ SCH (05:29)
[2021-05-13] MEDS: polyethylene glycoL 3350 17 GM POWD.PACK PO SCH (08:54)
[2021-05-13] MEDS: Gabapentin 300 MG CAPSULE PO SCH ×3 (08:54→21:19)
[2021-05-13] MEDS ORDERED: 0.9 % Sodium Chloride 1,000 ML IVC SCH (09:30)
[2021-05-13] MEDS ORDERED: *HR* Midazolam HCl 2 MG/2 ML VIAL ONE (11:32)
[2021-05-13] MEDS ORDERED: *HR* FentaNYL (PF) 100 MCG/2 ML VIAL ONE (11:32)
[2021-05-13] MEDS ORDERED: CeFAZolin Syr 2,000MG/20 ML 2,000 MG/20 ML SYRINGE IVPB ONE (11:32)
[2021-05-13] MEDS ORDERED: *HR* Propofol 200 MG/20 ML VIAL IVP ONE (11:33)
[2021-05-13] MEDS ORDERED: Lidocaine -MPF 2% 5 ML VIAL ONE (11:34)
[2021-05-13] MEDS ORDERED: Lidocaine/EPI 1:100k 1% 50 ML VIAL ONE (12:56)
[2021-05-13] MEDS ORDERED: Bupivacaine/EPI 1:200k 0.25% 50 ML VIAL ONE (12:56)
[2021-05-13] MEDS: Ringers Solution, Lactated 1,000 ML IVC SCH (13:59)
[2021-05-13] MEDS: Nicotine 21 MG PATCH.TD24 TD SCH (18:30)
[2021-05-13] MEDS: Melatonin 3 MG TABLET PO SCH (21:19)
[2021-05-13] MEDS: FLUoxetine 20 MG CAPSULE PO SCH (21:19)
[2021-05-13] MEDS ORDERED: *HR* HYDROmorphone (PF) 1 MG/ML SYRINGE IVP ONE (22:53)
[2021-05-14] MEDS: *HR* OxyCODONE/APAP 10/325 TABLET PO PRN ×5 (01:31→21:07)
[2021-05-14] MEDS: Acetaminophen 325 MG TABLET PO PRN (01:37)
[2021-05-14] MEDS: *HR* Enoxaparin 40 MG/0.4 ML SYRINGE SQ SCH (05:55)
[2021-05-14] MEDS: Vancomycin 1,500 MG/265 ML IV.SOLN IVPB SCH ×2 (05:55→17:44)
[2021-05-14 06:44] LABS: BUN/Creatinine Ratio 14 (6-26); Blood Urea Nitrogen 10 mg/dL (6-20); Calcium 8.6 mg/dL (8.6-10.3); Carbon Dioxide 30 mEq/L (23-29); Chloride 103 mEq/L (98-107); Glucose 92 mg/dL (70-105); Osmolality,Calculated 283 (280-300); Potassium 3.9 mEq/L (3.5-5.1); Sodium 137 mEq/L (136-145); eGFR For African Americans > 60 (> 60); eGFR For Non-African Americans > 60 (> 60)
[2021-05-14 06:55] LABS: Basophils % 0.2 %; Eosinophils # 0.3 K/mcL (0.0-0.6); Eosinophils % 7.3 %; Hematocrit 30.6 % (35.3-44.9); Hemoglobin 9.5 g/dL (11.5-15.4); Immature Granulocytes % 0.2 % (0-4); Lymphocytes # 0.9 K/mcL (0.6-4.6); Lymphocytes % 21.2 %; Mean Corpuscular Hemoglobin 29.4 pg (28.0-33.3); Mean Corpuscular Volume 94.7 fL (83.0-100.0); Mean Platelet Volume 10.2 fL (9.4-12.4); Monocytes # 0.5 K/mcL (0.0-1.3); Monocytes % 11.7 %; Neutrophils # 2.4 K/mcL (1.6-8.9); Platelet Count 201 K/mcL (140-400); Red Blood Count 3.23 M/mcL (3.82-4.97); Red Cell Distribution Width 14.6 % (11.5-14.5); Segmented Neutrophils % 59.4 %; White Blood Count 4.1 K/mcL (4.3-11.1)
[2021-05-14] MEDS ORDERED: 0.9 % Sodium Chloride 1,000 ML IVC SCH (08:15)
[2021-05-14] MEDS: Gabapentin 300 MG CAPSULE PO SCH ×3 (08:23→21:03)
[2021-05-14] MEDS ORDERED: *HR* Alteplase (Cathflo) 2 MG VIAL IVP ONE (11:01)
[2021-05-14] MEDS: Ringers Solution, Lactated 1,000 ML IVC SCH (14:01)
[2021-05-14] MEDS: polyethylene glycoL 3350 17 GM POWD.PACK PO SCH (16:30)
[2021-05-14] MEDS: Nicotine 21 MG PATCH.TD24 TD SCH (17:44)
[2021-05-14] MEDS: Ketorolac 30 MG/ML VIAL IVP PRN (19:49)
[2021-05-14] MEDS: Melatonin 3 MG TABLET PO SCH (21:03)
[2021-05-14] MEDS: FLUoxetine 20 MG CAPSULE PO SCH (21:03)
[2021-05-15] MEDS: *HR* OxyCODONE/APAP 10/325 TABLET PO PRN ×4 (01:16→18:32)
[2021-05-15 04:26] LABS: Hematocrit 28.4 % (35.3-44.9); Hemoglobin 8.9 g/dL (11.5-15.4); Mean Corpuscular HGB Conc 31.3 g/dL (31.6-35.5); Mean Corpuscular Hemoglobin 29.8 pg (28.0-33.3); Mean Platelet Volume 9.9 fL (9.4-12.4); Platelet Count 161 K/mcL (140-400); Red Blood Count 2.99 M/mcL (3.82-4.97); Red Cell Distribution Width 14.4 % (11.5-14.5); White Blood Count 3.2 K/mcL (4.3-11.1)
[2021-05-15 04:45] LABS: BUN/Creatinine Ratio 16 (6-26); Blood Urea Nitrogen 10 mg/dL (6-20); Calcium 8.5 mg/dL (8.6-10.3); Carbon Dioxide 27 mEq/L (23-29); Chloride 104 mEq/L (98-107); Glucose 114 mg/dL (70-105); Osmolality,Calculated 284 (280-300); Potassium 3.6 mEq/L (3.5-5.1); Sodium 137 mEq/L (136-145); eGFR For African Americans > 60 (> 60); eGFR For Non-African Americans > 60 (> 60)
[2021-05-15] MEDS: Vancomycin 1,500 MG/265 ML IV.SOLN IVPB SCH ×2 (05:50→18:32)
[2021-05-15] MEDS: *HR* Enoxaparin 40 MG/0.4 ML SYRINGE SQ SCH (05:50)
[2021-05-15] MEDS: Gabapentin 300 MG CAPSULE PO SCH ×3 (07:48→21:12)
[2021-05-15] MEDS: polyethylene glycoL 3350 17 GM POWD.PACK PO SCH (07:48)
[2021-05-15] MEDS: Ketorolac 30 MG/ML VIAL IVP PRN (09:03)
[2021-05-15] MEDS: Fluticasone Propionate Nasal 50 MCG/SPRAY BOTTLE NS SCH (09:14)
[2021-05-15] MEDS: Ringers Solution, Lactated 1,000 ML IVC SCH (11:48)
[2021-05-15] MEDS: Nicotine 21 MG PATCH.TD24 TD SCH (18:32)
[2021-05-15] MEDS: FLUoxetine 20 MG CAPSULE PO SCH (21:12)
[2021-05-15] MEDS: Melatonin 3 MG TABLET PO SCH (21:12)
[2021-05-16] MEDS: *HR* OxyCODONE/APAP 10/325 TABLET PO PRN ×5 (00:02→20:17)
[2021-05-16] MEDS: Ketorolac 30 MG/ML VIAL IVP PRN ×2 (01:31→12:58)
[2021-05-16] MEDS: Ringers Solution, Lactated 1,000 ML IVC SCH (04:45)
[2021-05-16] MEDS: Vancomycin 1,500 MG/265 ML IV.SOLN IVPB SCH ×2 (04:46→19:05)
[2021-05-16] MEDS: *HR* Enoxaparin 40 MG/0.4 ML SYRINGE SQ SCH (06:56)
[2021-05-16] MEDS: polyethylene glycoL 3350 17 GM POWD.PACK PO SCH (09:27)
[2021-05-16] MEDS: Gabapentin 300 MG CAPSULE PO SCH ×3 (09:27→20:17)
[2021-05-16] MEDS: Fluticasone Propionate Nasal 50 MCG/SPRAY BOTTLE NS SCH (09:28)
[2021-05-16] MEDS: Furosemide 20 MG TABLET PO SCH ×2 (10:52→18:26)
[2021-05-16] MEDS: Acetaminophen 325 MG TABLET PO PRN (12:58)
[2021-05-16] MEDS: Nicotine 21 MG PATCH.TD24 TD SCH (18:26)
[2021-05-16] MEDS: FLUoxetine 20 MG CAPSULE PO SCH (20:17)
[2021-05-17] MEDS: *HR* OxyCODONE/APAP 10/325 TABLET PO PRN ×6 (00:19→21:43)
[2021-05-17] MEDS: Melatonin 3 MG TABLET PO SCH ×2 (01:10→21:19)
[2021-05-17 04:37] LABS: Hematocrit 27.8 % (35.3-44.9); Hemoglobin 8.8 g/dL (11.5-15.4); Mean Corpuscular HGB Conc 31.7 g/dL (31.6-35.5); Mean Corpuscular Hemoglobin 29.4 pg (28.0-33.3); Mean Platelet Volume 9.7 fL (9.4-12.4); Platelet Count 155 K/mcL (140-400); Red Blood Count 2.99 M/mcL (3.82-4.97); Red Cell Distribution Width 14.4 % (11.5-14.5); White Blood Count 3.8 K/mcL (4.3-11.1)
[2021-05-17 04:50] LABS: BUN/Creatinine Ratio 17 (6-26); Blood Urea Nitrogen 13 mg/dL (6-20); Calcium 8.9 mg/dL (8.6-10.3); Carbon Dioxide 32 mEq/L (23-29); Chloride 98 mEq/L (98-107); Glucose 97 mg/dL (70-105); Osmolality,Calculated 280 (280-300); Potassium 3.8 mEq/L (3.5-5.1); Sodium 135 mEq/L (136-145); eGFR For African Americans > 60 (> 60); eGFR For Non-African Americans > 60 (> 60)
[2021-05-17] MEDS: Acetaminophen 325 MG TABLET PO PRN (05:45)
[2021-05-17] MEDS: Ketorolac 30 MG/ML VIAL IVP PRN (05:47)
[2021-05-17] MEDS: *HR* Enoxaparin 40 MG/0.4 ML SYRINGE SQ SCH (05:49)
[2021-05-17] MEDS: Vancomycin 1,500 MG/265 ML IV.SOLN IVPB SCH ×2 (05:50→17:04)
[2021-05-17] MEDS: Furosemide 20 MG TABLET PO SCH ×2 (08:27→17:03)
[2021-05-17] MEDS: Gabapentin 300 MG CAPSULE PO SCH ×3 (08:27→21:21)
[2021-05-17] MEDS: polyethylene glycoL 3350 17 GM POWD.PACK PO SCH (08:27)
[2021-05-17] MEDS: Fluticasone Propionate Nasal 50 MCG/SPRAY BOTTLE NS SCH (08:28)
[2021-05-17] MEDS: Nicotine 21 MG PATCH.TD24 TD SCH (17:03)
[2021-05-17] MEDS: FLUoxetine 20 MG CAPSULE PO SCH (21:20)
[2021-05-17] MEDS ORDERED: *HR* HYDROmorphone (PF) 1 MG/ML SYRINGE IVP ONE (23:41)
[2021-05-18] MEDS: *HR* OxyCODONE/APAP 10/325 TABLET PO PRN ×4 (04:07→19:58)
[2021-05-18 05:37] LABS: BUN/Creatinine Ratio 12 (6-26); Blood Urea Nitrogen 10 mg/dL (6-20); Calcium 8.7 mg/dL (8.6-10.3); Carbon Dioxide 30 mEq/L (23-29); Chloride 97 mEq/L (98-107); Glucose 95 mg/dL (70-105); Magnesium 1.6 mg/dL (1.6-2.6); Osmolality,Calculated 275 (280-300); Phosphorous 3.2 mg/dL (2.7-4.5); Sodium 133 mEq/L (136-145); Vancomycin,Trough 19 mcg/mL (5-10); eGFR For African Americans > 60 (> 60); eGFR For Non-African Americans > 60 (> 60)
[2021-05-18] MEDS: *HR* Enoxaparin 40 MG/0.4 ML SYRINGE SQ SCH (06:41)
[2021-05-18] MEDS: Acetaminophen 325 MG TABLET PO PRN (06:44)
[2021-05-18] MEDS: Vancomycin 1,250 MG/262.5 ML IV.SOLN IVPB SCH ×2 (07:11→18:06)
[2021-05-18] MEDS: Gabapentin 300 MG CAPSULE PO SCH ×3 (08:52→22:05)
[2021-05-18] MEDS: Furosemide 20 MG TABLET PO SCH ×2 (08:52→18:05)
[2021-05-18] MEDS: polyethylene glycoL 3350 17 GM POWD.PACK PO SCH (10:00)
[2021-05-18] MEDS: Nicotine 21 MG PATCH.TD24 TD SCH (18:05)
[2021-05-18] MEDS: FLUoxetine 20 MG CAPSULE PO SCH (22:04)
[2021-05-18] MEDS: Melatonin 3 MG TABLET PO SCH (22:05)
[2021-05-18] MEDS ORDERED: Ketorolac 30 MG/ML VIAL IVP ONE (23:32)
[2021-05-19] MEDS: *HR* OxyCODONE/APAP 10/325 TABLET PO PRN ×5 (00:06→21:04)
[2021-05-19] MEDS: Acetaminophen 325 MG TABLET PO PRN (03:00)
[2021-05-19 04:08] LABS: Basophils % 0.5 %; Eosinophils # 0.6 K/mcL (0.0-0.6); Eosinophils % 13.1 %; Hematocrit 29.3 % (35.3-44.9); Hemoglobin 9.3 g/dL (11.5-15.4); Immature Granulocytes % 0.5 % (0-4); Lymphocytes # 0.7 K/mcL (0.6-4.6); Lymphocytes % 15.4 %; Mean Corpuscular HGB Conc 31.7 g/dL (31.6-35.5); Mean Corpuscular Hemoglobin 30.1 pg (28.0-33.3); Mean Corpuscular Volume 94.8 fL (83.0-100.0); Mean Platelet Volume 9.8 fL (9.4-12.4); Monocytes # 0.5 K/mcL (0.0-1.3); Monocytes % 12.6 %; Neutrophils # 2.5 K/mcL (1.6-8.9); Platelet Count 178 K/mcL (140-400); Red Blood Count 3.09 M/mcL (3.82-4.97); Red Cell Distribution Width 14.5 % (11.5-14.5); Segmented Neutrophils % 57.9 %; White Blood Count 4.3 K/mcL (4.3-11.1)
[2021-05-19 04:24] LABS: BUN/Creatinine Ratio 17 (6-26); Blood Urea Nitrogen 14 mg/dL (6-20); Carbon Dioxide 28 mEq/L (23-29); Chloride 98 mEq/L (98-107); Glucose 98 mg/dL (70-105); Magnesium 1.7 mg/dL (1.6-2.6); Osmolality,Calculated 276 (280-300); Phosphorous 3.6 mg/dL (2.7-4.5); Potassium 4.1 mEq/L (3.5-5.1); Sodium 133 mEq/L (136-145); eGFR For African Americans > 60 (> 60); eGFR For Non-African Americans > 60 (> 60)
[2021-05-19] MEDS: *HR* Enoxaparin 40 MG/0.4 ML SYRINGE SQ SCH (06:22)
[2021-05-19] MEDS: Vancomycin 1,250 MG/262.5 ML IV.SOLN IVPB SCH ×2 (06:22→20:04)
[2021-05-19] MEDS: Fluticasone Propionate Nasal 50 MCG/SPRAY BOTTLE NS SCH ×2 (08:15→08:34)
[2021-05-19] MEDS: Vancomycin 1,500 MG/265 ML IV.SOLN IVPB SCH (08:16)
[2021-05-19] MEDS: Gabapentin 300 MG CAPSULE PO SCH ×3 (08:32→20:04)
[2021-05-19] MEDS: polyethylene glycoL 3350 17 GM POWD.PACK PO SCH (08:32)
[2021-05-19] MEDS: Furosemide 20 MG TABLET PO SCH (08:35)
[2021-05-19] MEDS: Nicotine 21 MG PATCH.TD24 TD SCH (18:05)
[2021-05-19] MEDS: FLUoxetine 20 MG CAPSULE PO SCH (20:04)
[2021-05-19] MEDS: Melatonin 3 MG TABLET PO SCH (20:04)
[2021-05-19] MEDS ORDERED: Ketorolac 30 MG/ML VIAL IVP ONE (22:41)
[2021-05-19] MEDS ORDERED: Morphine Sulfate 2 MG/ML SYRINGE IVP ONE (23:28)
[2021-05-20] MEDS: *HR* OxyCODONE/APAP 10/325 TABLET PO PRN ×5 (03:26→22:56)
[2021-05-20] MEDS: Acetaminophen 325 MG TABLET PO PRN (04:14)
[2021-05-20] MEDS: *HR* Enoxaparin 40 MG/0.4 ML SYRINGE SQ SCH (06:33)
[2021-05-20] MEDS: Vancomycin 1,250 MG/262.5 ML IV.SOLN IVPB SCH ×2 (06:33→21:47)
[2021-05-20] MEDS: Furosemide 20 MG TABLET PO SCH (07:57)
[2021-05-20] MEDS: Gabapentin 300 MG CAPSULE PO SCH ×3 (07:58→21:47)
[2021-05-20] MEDS: polyethylene glycoL 3350 17 GM POWD.PACK PO SCH (07:58)
[2021-05-20] MEDS: Fluticasone Propionate Nasal 50 MCG/SPRAY BOTTLE NS SCH (07:58)
[2021-05-20] MEDS: Nicotine 21 MG PATCH.TD24 TD SCH (18:44)
[2021-05-20] MEDS: Melatonin 3 MG TABLET PO SCH (21:47)
[2021-05-20] MEDS: FLUoxetine 20 MG CAPSULE PO SCH (21:47)
[2021-05-21] MEDS: *HR* HYDROcodone/Acet 7.5/325 mg TABLET PO PRN ×3 (00:28→19:43)
[2021-05-21] MEDS: *HR* OxyCODONE/APAP 10/325 TABLET PO PRN ×4 (03:16→21:48)
[2021-05-21] MEDS: Vancomycin 1,250 MG/262.5 ML IV.SOLN IVPB SCH ×2 (06:51→20:04)
[2021-05-21] MEDS: *HR* Enoxaparin 40 MG/0.4 ML SYRINGE SQ SCH (06:51)
[2021-05-21] MEDS: Furosemide 20 MG TABLET PO SCH (10:23)
[2021-05-21] MEDS: Fluticasone Propionate Nasal 50 MCG/SPRAY BOTTLE NS SCH (10:24)
[2021-05-21] MEDS: polyethylene glycoL 3350 17 GM POWD.PACK PO SCH (10:24)
[2021-05-21] MEDS: Gabapentin 300 MG CAPSULE PO SCH ×3 (10:24→20:01)
[2021-05-21 11:04] LABS: eGFR For African Americans > 60 (> 60); eGFR For Non-African Americans > 60 (> 60)
[2021-05-21] MEDS: Nicotine 21 MG PATCH.TD24 TD SCH (16:07)
[2021-05-21 17:16] LABS: HCV Quant Log 5.66 log IU/mL
[2021-05-21] MEDS: FLUoxetine 20 MG CAPSULE PO SCH (20:01)
[2021-05-21] MEDS: Melatonin 3 MG TABLET PO SCH (20:01)
[2021-05-21] MEDS ORDERED: hydrOXYzine pamoate 25 MG CAPSULE PO ONE (23:05)
[2021-05-22] MEDS: *HR* OxyCODONE/APAP 10/325 TABLET PO PRN ×5 (02:28→23:58)
[2021-05-22 05:09] LABS: Basophils % 0.2 %; Eosinophils # 0.8 K/mcL (0.0-0.6); Eosinophils % 16.8 %; Hematocrit 26.6 % (35.3-44.9); Hemoglobin 8.3 g/dL (11.5-15.4); Immature Granulocytes % 0.4 % (0-4); Lymphocytes # 0.6 K/mcL (0.6-4.6); Lymphocytes % 14.1 %; Mean Corpuscular HGB Conc 31.2 g/dL (31.6-35.5); Mean Corpuscular Hemoglobin 29.6 pg (28.0-33.3); Mean Platelet Volume 10.1 fL (9.4-12.4); Monocytes # 0.4 K/mcL (0.0-1.3); Monocytes % 8.1 %; Neutrophils # 2.7 K/mcL (1.6-8.9); Platelet Count 181 K/mcL (140-400); Red Cell Distribution Width 14.4 % (11.5-14.5); Segmented Neutrophils % 60.4 %; White Blood Count 4.5 K/mcL (4.3-11.1)
[2021-05-22 05:22] LABS: BUN/Creatinine Ratio 30 (6-26); Blood Urea Nitrogen 21 mg/dL (6-20); Calcium 9.1 mg/dL (8.6-10.3); Carbon Dioxide 30 mEq/L (23-29); Chloride 101 mEq/L (98-107); Glucose 96 mg/dL (70-105); Magnesium 1.8 mg/dL (1.6-2.6); Osmolality,Calculated 285 (280-300); Phosphorous 3.7 mg/dL (2.7-4.5); Potassium 3.7 mEq/L (3.5-5.1); Sodium 136 mEq/L (136-145); eGFR For African Americans > 60 (> 60); eGFR For Non-African Americans > 60 (> 60)
[2021-05-22] MEDS: *HR* Enoxaparin 40 MG/0.4 ML SYRINGE SQ SCH (06:41)
[2021-05-22] MEDS: Vancomycin 1,250 MG/262.5 ML IV.SOLN IVPB SCH ×2 (09:05→18:37)
[2021-05-22] MEDS: Furosemide 20 MG TABLET PO SCH (09:07)
[2021-05-22] MEDS: Gabapentin 300 MG CAPSULE PO SCH ×3 (09:07→20:39)
[2021-05-22] MEDS: polyethylene glycoL 3350 17 GM POWD.PACK PO SCH (09:08)
[2021-05-22] MEDS: Fluticasone Propionate Nasal 50 MCG/SPRAY BOTTLE NS SCH (09:08)
[2021-05-22] MEDS: *HR* HYDROcodone/Acet 7.5/325 mg TABLET PO PRN ×2 (10:11→20:39)
[2021-05-22 12:27] LABS: HCV Quant Interpretation DETECTED (Not Detected)
[2021-05-22] MEDS: Nicotine 21 MG PATCH.TD24 TD SCH (18:37)
[2021-05-22] MEDS: FLUoxetine 20 MG CAPSULE PO SCH (20:38)
[2021-05-22] MEDS: predniSONE 20 MG TABLET PO SCH (21:43)
[2021-05-22] MEDS: Loratadine 10 MG TABLET PO SCH (21:43)
[2021-05-22] MEDS: Triamcinolone Acet 0.1% CRM 15 GM TUBE TP PRN (23:59)
[2021-05-22] MEDS: Melatonin 3 MG TABLET PO SCH (23:59)
[2021-05-22] MEDS: DiphenhydraMINE CREAM 28.4 GM TUBE TP PRN (23:59)
[2021-05-23] MEDS: *HR* HYDROcodone/Acet 7.5/325 mg TABLET PO PRN ×3 (04:48→23:03)
[2021-05-23] MEDS: *HR* Enoxaparin 40 MG/0.4 ML SYRINGE SQ SCH (04:49)
[2021-05-23] MEDS: *HR* OxyCODONE/APAP 10/325 TABLET PO PRN ×3 (07:02→19:36)
[2021-05-23] MEDS: predniSONE 20 MG TABLET PO SCH (08:27)
[2021-05-23] MEDS: Furosemide 20 MG TABLET PO SCH (08:27)
[2021-05-23] MEDS: Loratadine 10 MG TABLET PO SCH (08:28)
[2021-05-23] MEDS: Gabapentin 300 MG CAPSULE PO SCH ×3 (08:28→19:36)
[2021-05-23] MEDS: Fluticasone Propionate Nasal 50 MCG/SPRAY BOTTLE NS SCH (08:34)
[2021-05-23] MEDS: DiphenhydraMINE CREAM 28.4 GM TUBE TP PRN ×2 (08:35→19:40)
[2021-05-23] MEDS: polyethylene glycoL 3350 17 GM POWD.PACK PO SCH (08:40)
[2021-05-23] MEDS: Vancomycin 1,250 MG/262.5 ML IV.SOLN IVPB SCH ×2 (08:45→17:42)
[2021-05-23] MEDS ORDERED: *HR* Alteplase (Cathflo) 2 MG VIAL IVP ONE (09:26)
[2021-05-23] MEDS: Acetaminophen 325 MG TABLET PO PRN (09:52)
[2021-05-23 12:37] LABS: BUN/Creatinine Ratio 18 (6-26); Blood Urea Nitrogen 13 mg/dL (6-20); Calcium 9.6 mg/dL (8.6-10.3); Carbon Dioxide 26 mEq/L (23-29); Chloride 99 mEq/L (98-107); Glucose 123 mg/dL (70-105); Osmolality,Calculated 279 (280-300); Phosphorous 2.1 mg/dL (2.7-4.5); Potassium 4.3 mEq/L (3.5-5.1); Sodium 134 mEq/L (136-145); eGFR For African Americans > 60 (> 60); eGFR For Non-African Americans > 60 (> 60)
[2021-05-23] MEDS: Nicotine 21 MG PATCH.TD24 TD SCH (17:41)
[2021-05-23] MEDS: FLUoxetine 20 MG CAPSULE PO SCH (19:37)
[2021-05-23] MEDS: Triamcinolone Acet 0.1% CRM 15 GM TUBE TP PRN (19:40)
[2021-05-24] MEDS: Melatonin 3 MG TABLET PO SCH ×2 (01:19→20:48)
[2021-05-24] MEDS: *HR* OxyCODONE/APAP 10/325 TABLET PO PRN ×4 (02:59→21:07)
[2021-05-24] MEDS: *HR* HYDROcodone/Acet 7.5/325 mg TABLET PO PRN ×2 (06:32→19:28)
[2021-05-24] MEDS: *HR* Enoxaparin 40 MG/0.4 ML SYRINGE SQ SCH (06:33)
[2021-05-24] MEDS: Vancomycin 1,500 MG/265 ML IV.SOLN IVPB SCH ×2 (06:34→19:24)
[2021-05-24] MEDS: Gabapentin 300 MG CAPSULE PO SCH ×3 (09:58→20:48)
[2021-05-24] MEDS: Furosemide 20 MG TABLET PO SCH (09:59)
[2021-05-24] MEDS: polyethylene glycoL 3350 17 GM POWD.PACK PO SCH (09:59)
[2021-05-24] MEDS: predniSONE 20 MG TABLET PO SCH (09:59)
[2021-05-24] MEDS: Fluticasone Propionate Nasal 50 MCG/SPRAY BOTTLE NS SCH (09:59)
[2021-05-24] MEDS: Loratadine 10 MG TABLET PO SCH (09:59)
[2021-05-24] MEDS: Nicotine 21 MG PATCH.TD24 TD SCH (17:07)
[2021-05-24] MEDS: FLUoxetine 20 MG CAPSULE PO SCH (20:49)
[2021-05-25] MEDS: *HR* OxyCODONE/APAP 10/325 TABLET PO PRN ×4 (01:51→15:05)
[2021-05-25] MEDS: Vancomycin 1,500 MG/265 ML IV.SOLN IVPB SCH (05:17)
[2021-05-25] MEDS: *HR* Enoxaparin 40 MG/0.4 ML SYRINGE SQ SCH (05:18)
[2021-05-25 07:29] VITALS: O2SAT 96
[2021-05-25] MEDS: Gabapentin 300 MG CAPSULE PO SCH ×2 (09:30→15:05)
[2021-05-25] MEDS: predniSONE 20 MG TABLET PO SCH (09:30)
[2021-05-25] MEDS: Loratadine 10 MG TABLET PO SCH (09:30)
[2021-05-25] MEDS: Furosemide 20 MG TABLET PO SCH (09:30)
[2021-05-25] MEDS: Fluticasone Propionate Nasal 50 MCG/SPRAY BOTTLE NS SCH (09:31)
[2021-05-25] MEDS: polyethylene glycoL 3350 17 GM POWD.PACK PO SCH (09:31)
[2021-05-25] MEDS: *HR* HYDROcodone/Acet 7.5/325 mg TABLET PO PRN (13:22)
[2021-05-25 14:54] VITALS: BP 118/81; PULSE 78; TEMP 97.4
== END 2021-05-25 15:46 | disposition home or self-care (01) | DRG 710 ==
LOC: EMEROOARM 22:04 → 4WAOSI 22:04 → SUATTDRO 04-26 02:28 → 4WAOSI 04-26 03:25 → SUATTDRO 04-27 12:51 → 3ANU 05-24 10:48
PROVIDERS: ADMIT Family Medicine; ATTEND Internal Medicine